=== PATIENT | male | born 1985 | race Caucasian/White ===

== ENCOUNTER 2019-11-10 21:59 | Emergency (ER) | payer BC ==
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
[2019-11-10] MEDS ORDERED: Adacel (T-DAP) 0.5 ML SYRINGE ONE (23:17)
[2019-11-10] MEDS ORDERED: Lidocaine 1% w/Epinephrine 1:100K 20 ML VIAL ONE (23:49)
== END 2019-11-11 00:19 | disposition home or self-care (01) ==
LOC: MADERS 21:59
DX: S01.01XA Laceration without foreign body of scalp, initial encounter (principal); V86.99XA Unspecified occupant of other special all-terrain or other off-road motor vehicle injured in nontraffic accident, initial encounter
CPT/HCPCS: 12002; 70450; 72125; 90471; 90715